=== PATIENT | male | born 2000 | race Asian ===

== ENCOUNTER 2020-11-25 12:24 | Emergency (ER) | payer BC ==
[~2020-11-25] VITALS: Ht 182.9 cm; Wt 134.3 kg
[2020-11-25 13:45] VITALS: BP 146/75; TEMP 97.8
== END 2020-11-25 13:45 | disposition home or self-care (01) ==
LOC: ED 12:24
DX: J06.9 Acute upper respiratory infection, unspecified (principal); U07.1 COVID-19
CPT/HCPCS: 87502; 87635; 87651; 96372; 99283; J1100; U0003